=== PATIENT | male | born 1930 | race African-American/Black ===

== ENCOUNTER 2019-04-11 17:07 | Inpatient (IN) | payer MEDICARE, MEDICAID ==
[~2019-04-11] VITALS: Ht 175.3 cm; Wt 64.4 kg
[~2019-04-11 17:07] MED LIST: MVI, ADULT NO.1 10 ML, FOLIC ACID 1 MG, THIAMINE HCL 100 MG in SODIUM CHLORIDE 0.9% 1,0... IV ONE
[2019-04-11] MEDS ORDERED: SODIUM CHLORIDE 0.9% 1,000 ML IV ONE (17:29)
[2019-04-11 17:48] LABS: BASOPHILS % 0.4 % (0.0-2.0); EOSINOPHILS % 0.7 % (0.0-5.0); HEMATOCRIT. 40.4 % (42.0-52.0); HEMOGLOBIN. 14.2 g/dL (14.0-18.0); LYMPHOCYTES % 14.5 % (20.0-50.0); MEAN CORPUSCULAR HEMOGLOBIN 36.6 pg (28.0-32.0); MEAN CORPUSCULAR VOLUME 104.5 fL (80.0-94.0); MEAN PLATELET VOLUME 7.4 fl (7.4-10.4); MONOCYTES % 11.7 % (2.0-8.0); NEUTROPHILS % 72.7 % (40.0-76.0); PLATELET 251 x1000/uL (130-400); RED BLOOD CELL COUNT 3.87 mill/uL (4.7-6.1); RED CELL DISTRIBUTION WIDTH 14.4 % (11.6-14.6)
[2019-04-11 17:52] LABS: CHLORIDE 100 mEq/L (98-107)
[2019-04-11 18:01] LABS: CREATINE KINASE 119 IU/L (39-308)
[2019-04-11] MEDS ORDERED: POTASSIUM CHLORIDE INJ 40 MEQ in DEXT 5% WATER 500 ML IV ONE (19:30)
[2019-04-11] MEDS ORDERED: POTASSIUM CHLORIDE 20MEQ TABLET SR PO ONE (19:30)
[2019-04-11] MEDS ORDERED: IPRATROPIUM/ALBUTEROL 0.5-3(2.5)MG/3ML NEB NEB PRN (20:45)
[2019-04-11] MEDS ORDERED: TRAMADOL 50MG TABLET PO PRN (20:45)
[2019-04-11] MEDS ORDERED: ONDANSETRON HCL 4MG/2ML INJ IV PRN (20:45)
[2019-04-11] MEDS ORDERED: MAGNESIUM HYDROXIDE 400MG/5ML 30ML UDC PO PRN (20:45)
[2019-04-11] MEDS ORDERED: DIPHENHYDRAMINE 50MG/ML VIAL IV PRN (20:45)
[2019-04-11] MEDS ORDERED: ACETAMINOPHEN 325MG TABLET PO PRN (20:45)
[2019-04-11] MEDS ORDERED: MAGNESIUM/ALUMINUM HYDROXIDE/SIMETHICONE 30ML UDC PO PRN (20:45)
[2019-04-11 21:53] LABS: VITAMIN B12 SERUM 946 pg/mL (211-911)
[2019-04-11 23:00] VITALS: BP 123/52
[2019-04-12 06:17] LABS: BASOPHILS % 0.5 % (0.0-2.0); CHLORIDE 106 mEq/L (98-107); EOSINOPHILS % 1.1 % (0.0-5.0); HEMATOCRIT. 38.6 % (42.0-52.0); HEMOGLOBIN. 13.4 g/dL (14.0-18.0); LYMPHOCYTES % 17.3 % (20.0-50.0); MEAN CORPUSCULAR HEMOGLOBIN 36.9 pg (28.0-32.0); MEAN CORPUSCULAR VOLUME 106.3 fL (80.0-94.0); MEAN PLATELET VOLUME 8.2 fl (7.4-10.4); MONOCYTES % 9.5 % (2.0-8.0); NEUTROPHILS % 71.6 % (40.0-76.0); PLATELET 236 x1000/uL (130-400); RED BLOOD CELL COUNT 3.63 mill/uL (4.7-6.1); RED CELL DISTRIBUTION WIDTH 14.2 % (11.6-14.6)
[2019-04-12 06:28] LABS: PHOSPHORUS 1.9 mg/dL (2.5-4.9)
[2019-04-12 08:00] VITALS: BP 107/52
[2019-04-12] MEDS: MEGESTROL ACETATE 400 MG/10 ML UDC PO SCH (08:40)
[2019-04-12] MEDS: ASPIRIN 81MG EC TABLET PO SCH (08:40)
[2019-04-12] MEDS: ENOXAPARIN 40MG/0.4ML SYR SUBCUT SCH (08:41)
[2019-04-12] MEDS: BUDESONIDE 0.5MG/2ML NEB HHN SCH ×2 (09:10→21:11)
[2019-04-12 12:00] VITALS: BP 103/47
[2019-04-12] MEDS ORDERED: LIDOCAINE HCL/EPINEPHRINE 1%-EPI 1:100,000 20 ML VIAL INFIL NR (12:00)
[2019-04-12] MEDS ORDERED: MAGNESIUM 2 G PREMIX 50 ML IV NR (12:00)
[2019-04-12] MEDS ORDERED: SODIUM PHOS,M-BASIC-D-BASIC 20 MM in DEXT 5% WATER 243.3333 ML IV NR (13:00)
[2019-04-12 16:00] VITALS: BP 105/80
[2019-04-12 20:00] VITALS: BP 126/59
[2019-04-13] VITALS: BP 121/61
[2019-04-13] MEDS: NICOTINE 7MG PATCH TD SCH (00:44)
[2019-04-13] MEDS: TEMAZEPAM 15MG CAPSULE PO PRN (00:49)
[2019-04-13 02:17] LABS: CLARITY URINE TURBID (CLEAR); COLOR URINE YELLOW (YELLOW); KETONES URINE NEGATIVE (NEGATIVE); LEUKOCYTE ESTERASE URINE 3+ (NEGATIVE); NITRITE URINE POSITIVE (NEGATIVE); OCCULT BLOOD URINE 2+ (NEGATIVE); PH URINE >=9.0 (4.5-8.0); PROTEIN URINE NEGATIVE (NEGATIVE); SPECIFIC GRAVITY URINE 1.005 (1.005-1.030)
[2019-04-13 04:00] VITALS: BP 128/53
[2019-04-13 08:00] VITALS: BP 106/51
[2019-04-13] MEDS: ENOXAPARIN 40MG/0.4ML SYR SUBCUT SCH (09:00)
[2019-04-13] MEDS: MEGESTROL ACETATE 400 MG/10 ML UDC PO SCH (09:00)
[2019-04-13] MEDS: ASPIRIN 81MG EC TABLET PO SCH (09:00)
[2019-04-13] MEDS: BUDESONIDE 0.5MG/2ML NEB HHN SCH ×2 (09:48→20:32)
[2019-04-13 12:00] VITALS: BP 110/58
[2019-04-13] MEDS ORDERED: LOPERAMIDE HCL 2MG CAPSULE PO PRN (14:00)
[2019-04-13 16:00] VITALS: BP 124/56
[2019-04-13 20:00] VITALS: BP 109/52
[2019-04-14] VITALS (7 sets, daily range): BP systolic 103–125; BP diastolic 51–62
[2019-04-14] MEDS: TEMAZEPAM 15MG CAPSULE PO PRN
[2019-04-14 07:55] LABS: BASOPHILS % 0.5 % (0.0-2.0); EOSINOPHILS % 1.7 % (0.0-5.0); HEMATOCRIT. 37.6 % (42.0-52.0); HEMOGLOBIN. 12.9 g/dL (14.0-18.0); LYMPHOCYTES % 19.1 % (20.0-50.0); MEAN CORPUSCULAR HEMOGLOBIN 36.8 pg (28.0-32.0); MEAN CORPUSCULAR VOLUME 107.2 fL (80.0-94.0); MEAN PLATELET VOLUME 7.7 fl (7.4-10.4); MONOCYTES % 9.4 % (2.0-8.0); NEUTROPHILS % 69.3 % (40.0-76.0); PLATELET 258 x1000/uL (130-400); RED BLOOD CELL COUNT 3.51 mill/uL (4.7-6.1); RED CELL DISTRIBUTION WIDTH 14.6 % (11.6-14.6)
[2019-04-14] MEDS: BUDESONIDE 0.5MG/2ML NEB HHN SCH ×2 (08:30→21:26)
[2019-04-14 08:37] LABS: CHLORIDE 110 mEq/L (98-107)
[2019-04-14 08:46] LABS: PHOSPHORUS 2.7 mg/dL (2.5-4.9)
[2019-04-14] MEDS ORDERED: ASCORBIC ACID 250 MG TABLET PO SCH (09:00)
[2019-04-14] MEDS ORDERED: ZINC SULFATE 220 MG ( 50 ) CAPSULE PO SCH (09:00)
[2019-04-14] MEDS: MEGESTROL ACETATE 400 MG/10 ML UDC PO SCH (10:14)
[2019-04-14] MEDS: ASPIRIN 81MG EC TABLET PO SCH (10:14)
[2019-04-14] MEDS: ENOXAPARIN 40MG/0.4ML SYR SUBCUT SCH (10:18)
[2019-04-14] MEDS: NICOTINE 7MG PATCH TD SCH (10:32)
[2019-04-14] MEDS ORDERED: MAGNESIUM 4 G PREMIX 100 ML IV SCH (15:00)
[2019-04-15] VITALS: BP 123/47
== END 2019-04-14 23:57 | DRG 622 ==
LOC: ER 17:07 → 6EST 19:21 → EDBEDREQ 19:24 → ENRESERV 20:37
PROVIDERS: ADMIT Internal Medicine; ATTEND Internal Medicine
PROC: 0JB90ZZ Excision of Buttock Subcutaneous Tissue and Fascia, Open Approach (ICD-10-PCS; principal; 2019-04-12)
DX: E87.6 Hypokalemia (principal); L89.313 Pressure ulcer of right buttock, stage 3; E43 Unspecified severe protein-calorie malnutrition; E83.42 Hypomagnesemia; J44.9 Chronic obstructive pulmonary disease, unspecified; M19.90 Unspecified osteoarthritis, unspecified site; I10 Essential (primary) hypertension; N40.0 Benign prostatic hyperplasia without lower urinary tract symptoms; M10.9 Gout, unspecified; Z60.2 Problems related to living alone; Z87.891 Personal history of nicotine dependence; Z88.0 Allergy status to penicillin; Z79.899 Other long term (current) drug therapy; Z68.21 Body mass index [BMI] 21.0-21.9, adult; Z87.81 Personal history of (healed) traumatic fracture
CPT/HCPCS: 36415; 71045; 74176; 80048; 81003; 82550; 82607; 83735; 84100; 84134; 84443; 93005; 94640; 97110; 97140; 97162; 97167; 97530; 99285; J1650; J3411; J3475; J3480; J3490; J7030; J7040; J7060; J7620; J7626